=== PATIENT | female | born 1960 | race Caucasian/White ===

== ENCOUNTER 2017-04-02 19:27 | Emergency (ER) | payer OTHER ==
[2017-04-02] MEDS ORDERED: PROGESTERONE100 MG (19:37)
[2017-04-02] MEDS ORDERED: PRILOSEC PO (19:37)
[2017-04-02] MEDS ORDERED: COD LIVER OIL1 EACH (19:37)
== END 2017-04-02 20:00 | disposition home or self-care (01) ==
LOC: SED 19:27
DX: S46.811A Strain of other muscles, fascia and tendons at shoulder and upper arm level, right arm, initial encounter (principal); S46.812A Strain of other muscles, fascia and tendons at shoulder and upper arm level, left arm, initial encounter; K21.9 Gastro-esophageal reflux disease without esophagitis; Z90.49 Acquired absence of other specified parts of digestive tract; Z79.899 Other long term (current) drug therapy; V43.52XA Car driver injured in collision with other type car in traffic accident, initial encounter
CPT/HCPCS: 99283